=== PATIENT | female | born 1990 | race Two or more races ===

== ENCOUNTER 2020-10-04 13:39 | Outpatient (REF) | payer OTHER, SELFPAY ==
[2020-10-06 13:12] LABS: BV Int Neg Control Negative (Negative); BV Int Pos Control Positive (Positive)
[2020-10-09 02:58] LABS: HPV mRNA E6/E7 rflx Not Detected (Not Detected)
[2020-10-11 14:20] LABS: CT PCR NOT DETECTED (Not Detect.); NG PCR NOT DETECTED (Not Detect.)
== END 2020-10-04 13:40 | disposition home or self-care (01) ==
LOC: HO.LAB 13:39
PROVIDERS: PCP Internal Medicine; Referring Provider Internal Medicine; Visit Provider Advanced Practice Midwife
DX: Z01.419 Encounter for gynecological examination (general) (routine) without abnormal findings (principal); N92.1 Excessive and frequent menstruation with irregular cycle; Z97.5 Presence of (intrauterine) contraceptive device; Z20.2 Contact with and (suspected) exposure to infections with a predominantly sexual mode of transmission
CPT/HCPCS: 87480; 87491; 87510; 87591; 87624; 87625; 87660; 88142

== ENCOUNTER 2020-10-04 15:50 | Outpatient (REF) | payer OTHER, SELFPAY | END 2020-10-04 15:51 | disposition home or self-care (01) | LOC: HO.LAB 15:50 | PROVIDERS: Visit Provider Internal Medicine | DX: Z20.828 Contact with and (suspected) exposure to other viral communicable diseases (principal) | CPT/HCPCS: C9803; U0003 ==

== ENCOUNTER 2020-12-05 15:30 | Outpatient (REF) | payer OTHER, SELFPAY | END 2020-12-05 15:31 | disposition home or self-care (01) | LOC: HO.LAB 15:30 | PROVIDERS: Visit Provider Internal Medicine | DX: Z20.822 Contact with and (suspected) exposure to COVID-19 (principal) | CPT/HCPCS: 36415; C9803; U0003; U0005 ==

== ENCOUNTER 2020-12-18 12:08 | Outpatient (REF) | payer OTHER, SELFPAY | END 2020-12-18 12:09 | disposition home or self-care (01) | LOC: HO.LAB 12:08 | PROVIDERS: PCP Internal Medicine; Visit Provider Internal Medicine | DX: Z20.822 Contact with and (suspected) exposure to COVID-19 (principal) | CPT/HCPCS: 36415; C9803; U0003; U0005 ==

== ENCOUNTER 2020-12-23 13:45 | Outpatient (REF) | payer OTHER, SELFPAY | END 2020-12-23 13:46 | disposition home or self-care (01) | LOC: HO.LAB 13:45 | PROVIDERS: PCP Internal Medicine; Visit Provider Internal Medicine | DX: Z20.822 Contact with and (suspected) exposure to COVID-19 (principal) | CPT/HCPCS: 36415; C9803; U0003; U0005 ==

== ENCOUNTER 2021-02-20 14:26 | Outpatient (REF) | payer OTHER, SELFPAY ==
[2021-02-20 14:48] LABS: COVID-19 Test Negative (Negative); IDNOW Serial# 55D5AD1C
== END 2021-02-20 14:27 | disposition home or self-care (01) ==
LOC: HO.LAB 14:26
PROVIDERS: Visit Provider Internal Medicine
DX: Z20.822 Contact with and (suspected) exposure to COVID-19 (principal)
CPT/HCPCS: 36415; 87635; C9803

== ENCOUNTER → 2021-03-26 09:56 | Outpatient (BNVA) | payer OTHER, SELFPAY | PROVIDERS: PCP Internal Medicine; Visit Provider Advanced Practice Midwife ==

== ENCOUNTER 2021-06-10 13:14 | Outpatient (REF) | payer OTHER, SELFPAY | END 2021-06-10 13:15 | disposition home or self-care (01) | LOC: HO.LAB 13:14 | PROVIDERS: PCP Internal Medicine; Visit Provider Internal Medicine | DX: Z20.822 Contact with and (suspected) exposure to COVID-19 (principal) | CPT/HCPCS: C9803; U0003; U0005 ==

== ENCOUNTER → 2021-07-29 15:12 | Outpatient (BNVA) | payer OTHER, SELFPAY | PROVIDERS: PCP Internal Medicine; Visit Provider Advanced Practice Midwife ==

== ENCOUNTER → 2021-09-02 13:10 | Outpatient (BNVA) | payer OTHER, SELFPAY | PROVIDERS: PCP Internal Medicine; Visit Provider Advanced Practice Midwife | DX: Z30.46 Encounter for surveillance of implantable subdermal contraceptive (principal) | CPT/HCPCS: 11982 ==

== ENCOUNTER → 2021-10-09 10:09 | Outpatient (BNVA) | payer OTHER, SELFPAY | PROVIDERS: PCP Internal Medicine; Visit Provider Advanced Practice Midwife | DX: Z01.419 Encounter for gynecological examination (general) (routine) without abnormal findings (principal); N97.0 Female infertility associated with anovulation; L68.0 Hirsutism; Z87.42 Personal history of other diseases of the female genital tract | CPT/HCPCS: 81025 ==

== ENCOUNTER 2022-03-03 14:03 | Outpatient (REF) | payer OTHER, SELFPAY ==
[2022-03-04 13:18] LABS: Influenza A PCR POSITIVE (Negative); Influenza B PCR NEGATIVE (Negative); Resp Syncy Virus RNA Qual PCR NEGATIVE (Negative); SARS COV2 PCR INHOUSE NEGATIVE (Negative)
== END 2022-03-03 14:04 | disposition home or self-care (01) ==
LOC: HO.LAB 14:03
PROVIDERS: Visit Provider Hospitalist
DX: J06.9 Acute upper respiratory infection, unspecified (principal); Z20.822 Contact with and (suspected) exposure to COVID-19
CPT/HCPCS: 0241U

== ENCOUNTER 2022-03-03 14:41 | Outpatient (REF) | payer OTHER, SELFPAY ==
[2022-03-03 15:14] LABS: COVID-19 Test Negative (Negative)
== END 2022-03-03 14:42 | disposition home or self-care (01) ==
LOC: HO.LAB 14:41
PROVIDERS: Visit Provider Internal Medicine
DX: Z20.822 Contact with and (suspected) exposure to COVID-19 (principal)
CPT/HCPCS: 87635; C9803

== ENCOUNTER → 2022-05-12 12:48 | Outpatient (BNVA) | payer OTHER, SELFPAY | PROVIDERS: PCP Internal Medicine; Visit Provider Advanced Practice Midwife | DX: Z32.01 Encounter for pregnancy test, result positive (principal); Z87.42 Personal history of other diseases of the female genital tract | CPT/HCPCS: 81025 ==

== ENCOUNTER 2022-05-15 16:55 | Outpatient (REF) | payer OTHER, SELFPAY ==
[2022-05-15 17:45] LABS: HCG Quantitative 2259 mIU/mL
== END 2022-05-15 16:56 | disposition home or self-care (01) ==
LOC: HO.LAB 16:55
PROVIDERS: PCP Internal Medicine; Visit Provider Advanced Practice Midwife
DX: Z32.01 Encounter for pregnancy test, result positive (principal); Z87.42 Personal history of other diseases of the female genital tract
CPT/HCPCS: 36415; 84702

== ENCOUNTER 2022-05-18 06:35 | Outpatient (REF) | payer OTHER, SELFPAY ==
[2022-05-18 07:56] LABS: HCG Quantitative 3658 mIU/mL
== END 2022-05-18 06:36 | disposition home or self-care (01) ==
LOC: HO.LAB 06:35
PROVIDERS: PCP Internal Medicine; Visit Provider Advanced Practice Midwife
DX: Z32.01 Encounter for pregnancy test, result positive (principal); Z87.42 Personal history of other diseases of the female genital tract
CPT/HCPCS: 36415; 84702

== ENCOUNTER 2022-05-19 13:22 | Outpatient (REF) | payer OTHER, SELFPAY ==
--- NOTE | ~2022-05-19 | US_ITS ---
EXAMINATION: US OBSTETRICAL ULTRASOUND CLINICAL INFORMATION: COMPARISON: None. LMP: 04/04/2022. Gestational age by maternal dates is 6 weeks 3 days. Estimated date of delivery by maternal dates is 01/09/2023. TECHNIQUE: Both transabdominal and endovaginal scanning was performed. FINDINGS: A small gestational sac is present within the endometrial canal with a yolk sac seen. No pole is seen. No heartbeat is detected. Based upon sac size, gestational age would be 5 weeks 2 days. MATERNAL ADNEXA: The right maternal ovary measures 2.3 x 1.2 x 1.6 cm. The left maternal ovary measures 4.7 x 2.7 x 3.2 cm which includes a 2.2 x 1.9 x 2.0 cm corpus luteum cyst. There is no significant maternal adnexal mass. No maternal pelvic ascites. US/US OB <= 14 weeks fetus IMPRESSION: Gestational sac without pole as described above. Based upon sac size, gestational age would be 5 weeks 2 days. Recommend correlation with hCG and repeat ultrasound exam in one week's time.
== END 2022-05-19 13:23 | disposition home or self-care (01) ==
LOC: HO.US 13:22
PROVIDERS: PCP Internal Medicine; Visit Provider Advanced Practice Midwife
DX: Z34.91 Encounter for supervision of normal pregnancy, unspecified, first trimester (principal)
CPT/HCPCS: 76801

== ENCOUNTER 2022-05-22 08:52 | Outpatient (REF) | payer OTHER, SELFPAY ==
--- NOTE | ~2022-05-22 | US_ITS ---
EXAMINATION: OBSTETRICAL ULTRASOUND, FIRST TRIMESTER HISTORY: 31-year-old for follow-up viability LMP: 04/04/2022 COMPARISON: 05/19/2022 TECHNIQUE: Real time transabdominal imaging with color and M-mode Doppler. FINDINGS: An empty intrauterine gestational sac measuring 8.2 mm corresponding to 5 weeks and 3 days is noted. No yolk sac or embryonic pole seen. Both maternal ovaries are seen and appear normal. No free fluid in the cul-de-sac. GESTATIONAL AGE: 1. GA from LMP: 6.6 wks 2. GA from AUA: 5.3 wks ESTIMATED DATE OF DELIVERY: 1. PATRICIA from LMP: 01/09/2023 2. PATRICIA from AUA: 01/19/2023 US/US OB <= 14 weeks fetus IMPRESSION: 1. Today's finding is consistent with the missed AB Discussion: I reviewed today's findings and discussed the 3 options for management of first trimester missed AB. Thank you very much for this referral. This note was generated with a voice recognition program. Please excuse any errors which may have been overlooked during my review of this note. Sometimes these errors may affect the content or meaning of a given sentence.
== END 2022-05-22 08:53 | disposition home or self-care (01) ==
LOC: HO.US 08:52
PROVIDERS: Visit Provider Advanced Practice Midwife
DX: Z34.90 Encounter for supervision of normal pregnancy, unspecified, unspecified trimester (principal); Z87.42 Personal history of other diseases of the female genital tract
CPT/HCPCS: 76801

== ENCOUNTER 2022-05-29 10:22 | Outpatient (REF) | payer OTHER, SELFPAY ==
--- NOTE | ~2022-05-29 | US_ITS ---
EXAMINATION: US OBSTETRICAL ULTRASOUND CLINICAL INFORMATION: Encounter for supervision of . Follow-up missed . COMPARISON: 05/22/2022. LMP: 04/04/2022. Gestational age by maternal dates is 7 weeks 6 days. Estimated date of delivery by maternal dates is 01/09/2023. TECHNIQUE: Transabdominal and endovaginal sonographic evaluation of the pelvis. FINDINGS: There is a single intrauterine gestational sac with visible yolk sac, embryo/fetus, and cardiac activity. There is no significant subchorionic hemorrhage or hematoma. The yolk sac appears prominent. HR: 119 beats per minute. CRL (crown rump length): 0.35 cm (6 weeks 0 days +/- 4 days). PATRICIA (estimated date of delivery): 01/22/2023 +/- 4 days. MATERNAL ADNEXA: The right maternal ovary measures 3.1 x 1.5 x 3 cm. No adnexal mass. The left maternal ovary measures 4.7 x 3.1 x 4 cm. Dominant follicle measuring 2.4 cm. There is no significant maternal adnexal mass. No maternal pelvic ascites. US/US OB <= 14 weeks fetus IMPRESSION: 1. Single intrauterine gestation with ultrasound gestational age of 6 weeks 0 days +/- 4 days. This is a change from prior, at which time no pole was seen. This may have been secondary to the early stage of . Of note, the yolk sac does appear abnormally prominent. 2. Estimated date of delivery is 01/22/2023 +/- 4 days. 3. No maternal adnexal mass or pelvic ascites.
--- NOTE | ~2022-05-29 | US_ITS ---
EXAMINATION: US OBSTETRICAL ULTRASOUND CLINICAL INFORMATION: Encounter for supervision of . Follow-up missed . COMPARISON: 05/22/2022. LMP: 04/04/2022. Gestational age by maternal dates is 7 weeks 6 days. Estimated date of delivery by maternal dates is 01/09/2023. TECHNIQUE: Transabdominal and endovaginal sonographic evaluation of the pelvis. FINDINGS: There is a single intrauterine gestational sac with visible yolk sac, embryo/fetus, and cardiac activity. There is no significant subchorionic hemorrhage or hematoma. The yolk sac appears prominent. HR: 119 beats per minute. CRL (crown rump length): 0.35 cm (6 weeks 0 days +/- 4 days). PATRICIA (estimated date of delivery): 01/22/2023 +/- 4 days. MATERNAL ADNEXA: The right maternal ovary measures 3.1 x 1.5 x 3 cm. No adnexal mass. The left maternal ovary measures 4.7 x 3.1 x 4 cm. Dominant follicle measuring 2.4 cm. There is no significant maternal adnexal mass. No maternal pelvic ascites. US/US OB transvaginal IMPRESSION: 1. Single intrauterine gestation with ultrasound gestational age of 6 weeks 0 days +/- 4 days. This is a change from prior, at which time no pole was seen. This may have been secondary to the early stage of . Of note, the yolk sac does appear abnormally prominent. 2. Estimated date of delivery is 01/22/2023 +/- 4 days. 3. No maternal adnexal mass or pelvic ascites.
== END 2022-05-29 10:23 | disposition home or self-care (01) ==
LOC: HO.US 10:22
PROVIDERS: Visit Provider Advanced Practice Midwife
DX: Z34.91 Encounter for supervision of normal pregnancy, unspecified, first trimester (principal); Z3A.01 Less than 8 weeks gestation of pregnancy
CPT/HCPCS: 76801; 76817

== ENCOUNTER 2022-06-05 09:12 | Outpatient (REF) | payer OTHER, SELFPAY ==
--- NOTE | ~2022-06-05 | US_ITS ---
EXAMINATION: OB ULTRASOUND CLINICAL INFORMATION: Follow-up IUP COMPARISON: Previous exam May 2022 TECHNIQUE: Transabdominal first trimester OB ultrasound FINDINGS: There is an intrauterine gestational sac. Brumley-rump length measures 1.43 cm suggesting gestational age 7 weeks 6 days with estimated date of delivery of 01/16/2023. heart rate is 150 bpm. There is a prominent yolk sac. There is hypoechoic material adjacent to the gestational sac suggestive of small subchorionic hemorrhage. This measures 2.3 x 0.7 x 1 cm. The right maternal ovary is normal and measures 3.3 x 1.7 x 1.7 cm. The left maternal ovary measures 3.1 x 2.9 x 3.8 cm. There is a 2.2 x 0.7 x 1 cm left ovarian cyst. There is no fluid in the pelvis. US/US OB transvaginal IMPRESSION: Single viable intrauterine . From today's measurements gestational age is estimated at 7 weeks 6 days with estimated date of delivery of 01/16/2022. Yolk sac still appears prominent. Small subchorionic hemorrhage.
--- NOTE | ~2022-06-05 | US_ITS ---
EXAMINATION: US OBSTETRICAL ULTRASOUND CLINICAL INFORMATION: Follow-up missed . Increasing beta hCG level. COMPARISON: 05/29/2022. TECHNIQUE: Sonographic imaging of the pelvis is performed using a transabdominal transducer. FINDINGS: A single viable intrauterine gestation is observed. The heart rate is 150 bpm. The crown rump length is 1.5 cm, corresponding to estimated gestational age of 7 weeks, 6 days. The estimated date of delivery is 01/16/2023. A small crescentic shaped subchorionic hemorrhage measures approximately 2.3 x 0.7 x 0.7 cm. Again noted is an abnormally large yolk sac that measures up to 1.1 cm diameter, increased from 0.5 cm size observed on 05/22/2022. The maternal ovaries are normal. The right ovary is 3.3 x 1.7 x 1.7 cm. The left ovary is 3.1 x 2.9 x 3.8 cm. The dominant follicle within the left ovary is 2.3 cm. No pelvic free fluid. US/US OB <= 14 weeks fetus IMPRESSION: * Single viable intrauterine gestation with estimated gestational age of 7 weeks, 6 days. * A large yolk sac of 1.1 cm diameter is observed, a finding that might indicate risk for a poor obstetric outcome. * Interval development of a small subchorionic hemorrhage.
== END 2022-06-05 09:13 | disposition home or self-care (01) ==
LOC: HO.US 09:12
PROVIDERS: Visit Provider Advanced Practice Midwife
DX: O20.8 Other hemorrhage in early pregnancy (principal); Z3A.01 Less than 8 weeks gestation of pregnancy
CPT/HCPCS: 76801; 76817

== ENCOUNTER 2022-06-24 08:07 | Outpatient (REF) | payer OTHER, SELFPAY ==
[2022-06-24 08:49] LABS: COVID-19 Test Negative (Negative); IDNOW Serial# 16C4AD1C
== END 2022-06-24 08:08 | disposition home or self-care (01) ==
LOC: HO.LAB 08:07
PROVIDERS: Visit Provider Internal Medicine
DX: Z20.822 Contact with and (suspected) exposure to COVID-19 (principal)
CPT/HCPCS: 87635; C9803

== ENCOUNTER 2022-06-26 10:49 | Outpatient (REF) | payer OTHER, SELFPAY ==
[2022-06-26 11:32] LABS: COVID-19 Test Negative (Negative); IDNOW Serial# 9DD0AD1C
== END 2022-06-26 10:50 | disposition home or self-care (01) ==
LOC: HO.LAB 10:49
PROVIDERS: Visit Provider Internal Medicine
DX: Z20.822 Contact with and (suspected) exposure to COVID-19 (principal)
CPT/HCPCS: 87635; C9803

== ENCOUNTER 2022-11-24 09:30 | Outpatient (REF) | payer OTHER, SELFPAY ==
[2022-11-24 10:20] LABS: Influenza A PCR NEGATIVE (Negative); Influenza B PCR NEGATIVE (Negative); Resp Syncy Virus RNA Qual PCR NEGATIVE (Negative); SARS COV2 PCR INHOUSE NEGATIVE (Negative)
== END 2022-11-24 09:31 | disposition home or self-care (01) ==
LOC: HO.LAB 09:30
PROVIDERS: Visit Provider Internal Medicine
DX: Z20.822 Contact with and (suspected) exposure to COVID-19 (principal); J98.8 Other specified respiratory disorders
CPT/HCPCS: 0241U

== ENCOUNTER 2023-03-24 13:34 | Outpatient (REF) | payer OTHER, SELFPAY ==
[2023-03-24 13:53] LABS: MANUAL DIFF FLAG NO
[2023-03-24 14:38] LABS: Basophils Absolute Auto 0.1 X10*3/uL (0.0-0.2); Basophils Percent Auto 0.8 % (0-2); Eosinophils Absolute Auto 0.2 X10*3/uL (0.0-0.4); Eosinophils Percent Auto 2.2 % (0-4); Hematocrit 41.4 % (37.0-47.0); Hemoglobin 13.7 g/dl (12.0-16.0); Imm Gran Abs Auto 0.03 X10*3/uL (0.00-0.03); Imm Gran Pct Auto 0.3 % (0.0-0.4); Lymphocytes Absolute Auto 2.4 X10*3/uL (1.2-4.9); Lymphocytes Percent Auto 27.3 % (20-40); Mean Corpuscular HGB Conc 33.1 g/dl (31.0-35.0); Mean Corpuscular Hemoglobin 29.9 pg (27.0-33.0); Mean Corpuscular Volume 90.4 fL (80.0-98.0); Mean Platelet Volume 9.8 fL (9.4-12.3); Monocytes Absolute Auto 0.5 X10*3/uL (0.1-1.2); Monocytes Percent Auto 5.2 % (2-11); Neutrophils Absolute Auto 5.5 x10*3/uL (2.0-8.3); Neutrophils Percent Auto 64.2 % (45-73); Platelet Count 350 X10*3/uL (160-400); Red Blood Count 4.58 X10*6/uL (4.20-5.50); Red Cell Distribution Width 13.6 % (11.0-16.0); White Blood Count 8.6 X10*3/uL (4.8-10.8)
[2023-03-24 15:36] LABS: Alanine Aminotransferase 19 U/L (0-31); Albumin Level 4.6 g/dL (3.5-5.0); Alkaline Phosphatase 84 U/L (39-117); Anion Gap 16 (12-20); Aspartate Amino Transferase 18 U/L (5-31); Bilirubin Total 0.7 mg/dL (0.0-1.0); Blood Urea Nitrogen 13 mg/dL (9-16); Calcium 9.7 mg/dL (8.4-10.2); Carbon Dioxide 21 mmol/L (22-29); Chloride 108 mmol/L (96-108); Cholesterol 255 mg/dL; Estimated Glomerular Filt Rate > 60; Glucose Fasting 75 mg/dL (60-99); HDL Cholesterol 47 mg/dL; LDL Cholesterol Calculated 175 mg/dl; Potassium 4.3 mmol/L (3.3-5.1); Sodium 141 mmol/L (135-145); Total Protein 7.8 g/dL (6.5-8.0); Triglycerides 167 mg/dL
[2023-03-24 15:41] LABS: Appearance Urine Clear; Color Urine Yellow; Glucose Urine UA Negative (Negative); Leukocyte Esterase Urine Negative (Negative); Nitrite Urine Negative (Negative); PH 5.5 (5.0-9.0); Specific Gravity - Urine 1.015 (1.005-1.025); Urine Blood Negative (Negative); Urine Ketones Negative (Negative); Urine Protein Negative (Neg-Trace)
[2023-03-24 15:42] LABS: TSH reflex Free T4 0.77 uIU/mL (0.32-4.0); Vitamin D 25-OH Total 16.6 ng/mL (>30)
== END 2023-03-24 13:35 | disposition home or self-care (01) ==
LOC: HO.LAB 13:34
PROVIDERS: PCP Internal Medicine; Visit Provider Internal Medicine
DX: Z00.00 Encounter for general adult medical examination without abnormal findings (principal); O14.95 Unspecified pre-eclampsia, complicating the puerperium; E55.9 Vitamin D deficiency, unspecified; R30.0 Dysuria; E78.00 Pure hypercholesterolemia, unspecified
CPT/HCPCS: 36415; 80053; 80061; 81003; 82306; 84443; 85025

== ENCOUNTER 2023-07-09 15:57 | Outpatient (AMB) | payer MEDICAID, SELFPAY ==
--- NOTE | 2023-07-09 16:00 | MHC.PC.OV ---
Vital Signs 07/09/23 16:01 Height 5 ft 4 in Weight 211 lb 8 oz BMI 36.3 BP 146/92 H Blood Pressure Location Lt brachial Position Sitting Pulse 93 Pulse Source Pulse Oximeter Pulse Oximetry (%) 98 Oxygen Delivery Method Room Air Intake Visit Reasons: preeclampsia, elevated BP [employer] Truck [employer] Required: No Accompanied by: Self / Same As Patient Allergies No Known Allergies [No Known Allergies*] Allergy (Verified 07/11/23 21:35) Medication List - Last Reconciled 07/11/23 by Augustin Rasmussen MD cholecalciferol (vitamin D3) 50 mcg PO DAILY 90 days etonogestrel (Nexplanon) subdermal lisinopril 2.5 mg PO DAILY 30 days pseudoephedrine-acetaminophen 30-500 mg tabs PO Tobacco use date assessed: 07/09/23 Dental Screening Dental Screen Date: 07/09/23 Did you have a dental visit in the last 12 months?: Yes Did you have a dental problem in the last 6 months where you did not have access to dental care?: No Was dental information given to patient?: Patient has dentist HPI preeclampsia, elevated BP HPI Details Patient comes in today for her follow-up visit States that she feels okay Denies any headaches or dizziness Denies any chest pains, no shortness of breath No nausea / vomiting, no abdominal pain No change in bowel habits noted Would like to know how she did on her labs done a few months ago after her last visit [facility] Medical History (Updated 07/11/23 @ 21:56 by Augustin Rasmussen MD) Vitamin D deficiency Mixed hyperlipidemia Benign essential hypertension Preeclampsia in period Anovulatory cycle History of irregular menstrual cycles Eczema Obesity (BMI 30-39.9) Left ovarian cyst Surgical History History of surgery H/O right knee surgery History of section Family History Father Gout High cholesterol S/P CABG (coronary artery bypass graft) Mother Hypertension Asthma Uterine cancer Heart problem Maternal Grandmother High cholesterol Hypertension Diabetes Maternal Grandfather Glaucoma Maternal Aunt Breast cancer Paternal Aunt Ovarian cancer Social History Housing: Apartment Alcohol intake: current Alcohol intake frequency: holidays/special occasions only Patient Tobacco Use Status: Former Tobacco user e-Cigarette/Vaping Use: Currently Using service: No Current occupational status: employed Current occupational exposures/hazards: No Gender identity: Female Cognitive needs: No Hearing needs: No Vision needs: No Female Reproductive History Menstrual Age of Menarche: 14 Questionnaire PHQ-9 Over the last 2 weeks, how often have you been bothered by any of the following problems? 1. Little interest or pleasure in doing things: not at all 2. Feeling down, depressed, or hopeless: not at all 3. Trouble falling or staying asleep, or sleeping too much: not at all 4. Feeling tired or having little energy: not at all 5. Poor appetite or overeating: not at all 6. Feeling bad about yourself - or that you are a failure or have let yourself or your family down: not at all 7. Trouble concentrating on things, such as reading the newspaper or watching television: not at all 8. Moving or speaking so slowly that other people could have noticed. Or the opposite - being so fidgety or restless that you have been moving around a lot more than usual: not at all 9. Thoughts that you would be better off or of hurting yourself in some way: not at all Total score: 0 Depression Screening Interpretation: Negative 95717 - PHQ-9 Billing: Yes Source: Developed by Drs. Jv Mejia, Candis Jacob, David Galvez and colleagues, with an educational akira from [employer]. Thrive Questionnaire Date Thrive assessed: 07/09/23 I am a: Patient What is your living situation today?: I have a steady place to live Within the past 12 months, did the food you bought not last and you didn't have the money to get more?: Never true Within the past 12 months, did you worry whether your food would run out before you got money to buy more?: Never true Do you have trouble paying for medicines?: No Do you have trouble getting transportation to medical appointments?: No Do you have trouble paying your heating and electricity bill?: No Do you have trouble taking care of your child, family member or friend?: No Do you have trouble with day-to-day activities such as bathing, preparing meals, shopping, managing finances, etc.?: No Are you currently unemployed and looking for a job?: No Are you interested in more education?: No Please select the resources that you would like help with: None Currently or been in a relationship where the following occur: no concerns reported AUDIT C Alcohol Use Questionnaire (AUDIT-C) 1. How often do you have a drink containing alcohol?: Monthly or less 2. How many drinks containing alcohol do you have on a typical day when you are drinking?: 1 or 2 Total Score: 1 Score Reviewed/Action Taken: Yes TELMA-7 AMB Questionnaire TELMA-7 Date TELMA - 7 assessed: 07/09/23 Feeling nervous, anxious, or on edge: 0 = Not at all Not being able to stop or control worryin = Not at all Worrying too much about different things: 0 = Not at all Trouble relaxin = Not at all Being so restless that it is hard to sit still: 0 = Not at all Becoming easily annoyed or irritable: 0 = Not at all Feeling afraid as if something awful might happen: 0 = Not at all Total TELMA-7 score (0-4 normal; 5-9 mild; 10-14 moderate; 15-21 severe): 0 Source: Developed by Drs. Jv Mejia, Candis Jacob, David Galvez and colleagues, with an educational akira from [employer]. Review of Systems Const Denies chills, Denies fatigue, Denies fever(s) and Denies headache(s) ENT Denies dysphagia, Denies dizziness, Denies otalgia, Denies headache(s), Denies neck pain, Denies odynophagia and Denies sore throat Card Denies chest pain, Denies palpitations and Denies dyspnea Resp Denies cough and Denies dyspnea GI Denies abdominal pain, Denies constipation, Denies dysphagia, Denies heartburn, Denies diarrhea, Denies nausea, Denies odynophagia and Denies vomiting Denies difficulty voiding, Denies nocturia and Denies dysuria Musc Denies neck pain Neuro Denies dizziness and Denies headache(s) Endo Denies fatigue and Denies palpitations Physical exam (Primary Care) Vital Signs: Last Vital Signs Pulse 93 07/09/23 16:01 BP 146/92 H 07/09/23 16:01 Pulse Ox 98 07/09/23 16:01 Oxygen Delivery Method Room Air 07/09/23 16:01 BMI result Body Mass Index 36.3 Tobacco/Smoking Status: Tobacco use Status Tobacco use date assessed 07/09/23 07/09/23 16:08 Patient Tobacco Use Status Former Tobacco user 07/09/23 16:08 e-Cigarette/Vaping Use Currently Using 07/09/23 16:08 PHQ-9: PHQ-9 Score PHQ-9: Total score 0 07/11/23 21:43 Depression Screening Interpretation: Negative Thrive Assessment: Date of Thrive Assessment Date Thrive assessed 07/09/23 07/09/23 16:08 Currently or been in a relationship where the following occur: no concerns reported Const General: no acute distress and alert HENMT Ears: TM's normal bilaterally and EAC's normal Throat: Yes posterior oropharynx normal and Yes tonsils normal (no TP congestion) Neck Neck: Yes no lymphadenopathy and Yes supple Resp Auscultation: clear to auscultation bilaterally, no rales and no wheezes Cardio Rate: regular rate Rhythm: regular rhythm Heart sounds: no murmurs GI Palpation (GI): Soft to palpation, nontender and No hepatosplenomegaly present Skin General skin exam: no rashes or lesions noted Extrem General: Yes no clubbing, cyanosis or edema Assessment and Plan Assessment & Plan (1) Benign essential hypertension: Code(s): I10 - Essential (primary) hypertension Plan: Reinforced low sodium diet - goal is systolic BP of at least 120 mm or less Repeat BP in the office today still yields a high BP of 142/92 mm Will go ahead and start patient on Lisinopril 2.5 mg QD Patient is instructed to continue monitoring her blood pressure regularly (2) Mixed hyperlipidemia: Code(s): E78.2 - Mixed hyperlipidemia Plan: Results of her labs done a few months ago reviewed and discussed with patient - advised that her cholesterol numbers were elevated across the board Reminded that her cholesterol numbers were normal when last checked a few years ago so her currently elevated cholesterol levels are most likely due to poor dietary compliance Reinforced low cholesterol diet - low cholesterol diet info provided from the office Will recheck her labs and fasting lipids in 4 months for follow up (3) Vitamin D deficiency: Code(s): E55.9 - Vitamin D deficiency, unspecified Plan: Advised that her Vitamin D level was very low on her recent labs Will start her on Vitamin D3 2000 units QD (4) Obesity (BMI 30-39.9): Code(s): E66.9 - Obesity, unspecified Plan: Reinforced diet/exercise as tolerated/lose weight Plan Follow up in 4 months Orders: Orders Lipid Panel 4 Months E78.00 - Pure hypercholesterolemia, unspecified UA CC w/rflx Micro + Cult 4 Months R30.0 - Dysuria Complete Blood Count Auto Diff 4 Months I10 - Essential (primary) hypertension Comprehensive [place]. Panel Fast 4 Months E78.00 - Pure hypercholesterolemia, unspecified TSH reflex Free T4 4 Months E78.00 - Pure hypercholesterolemia, unspecified Vitamin D 25-OH Total 4 Months E55.9 - Vitamin D deficiency, unspecified Medications: New cholecalciferol (vitamin D3) 50 mcg PO DAILY 90 days 90 caps 3RF E55.9 - Vitamin D deficiency, unspecified lisinopril 2.5 mg PO DAILY 30 days 30 tabs 3RF Coding Level of Care Code Est Pt Level 4 (39654) Diagnoses Benign essential hypertension I10 Mixed hyperlipidemia E78.2 Vitamin D deficiency E55.9 Obesity (BMI 30-39.9) E66.9
[2023-07-09 16:01] VITALS: BP 146/92; PULSE 93; O2SAT 98; BMI 36.3
== END 2023-07-09 16:55 | disposition home or self-care (01) ==
PROVIDERS: PCP Internal Medicine; Visit Provider Internal Medicine
DX: I10 Essential (primary) hypertension (principal); E55.9 Vitamin D deficiency, unspecified; E66.9 Obesity, unspecified; Z68.36 Body mass index [BMI] 36.0-36.9, adult; E78.2 Mixed hyperlipidemia
CPT/HCPCS: 99214

== ENCOUNTER 2024-11-30 10:07 | Outpatient (REF) | payer OTHER, SELFPAY ==
[2024-11-30 11:36] LABS: MANUAL DIFF FLAG NO
[2024-11-30 11:52] LABS: Basophils Absolute Auto 0.1 X10*3/uL (0.0-0.2); Eosinophils Absolute Auto 0.2 X10*3/uL (0.0-0.4); Eosinophils Percent Auto 2.1 % (0-4); Hematocrit 42.2 % (37.0-47.0); Hemoglobin 14.1 g/dl (12.0-16.0); Imm Gran Abs Auto 0.04 X10*3/uL (0.00-0.03); Imm Gran Pct Auto 0.4 % (0.0-0.4); Lymphocytes Absolute Auto 2.3 X10*3/uL (1.2-4.9); Lymphocytes Percent Auto 24.7 % (20-40); Mean Corpuscular HGB Conc 33.4 g/dl (31.0-35.0); Mean Corpuscular Hemoglobin 31.8 pg (27.0-33.0); Mean Corpuscular Volume 95.3 fL (80.0-98.0); Mean Platelet Volume 9.5 fL (9.4-12.3); Monocytes Absolute Auto 0.5 X10*3/uL (0.1-1.2); Monocytes Percent Auto 5.1 % (2-11); Neutrophils Absolute Auto 6.3 x10*3/uL (2.0-8.3); Neutrophils Percent Auto 66.7 % (45-73); Platelet Count 357 X10*3/uL (160-400); Red Blood Count 4.43 X10*6/uL (4.20-5.50); Red Cell Distribution Width 12.1 % (11.0-16.0); White Blood Count 9.4 X10*3/uL (4.8-10.8)
[2024-11-30 12:04] LABS: Appearance Urine Clear; Color Urine Yellow; Glucose Urine UA Negative (Negative); Leukocyte Esterase Urine Negative (Negative); Nitrite Urine Negative (Negative); PH 5.5 (5.0-9.0); UMIC TRIGGER UACC YES; Urine Blood Small (1+) (Negative); Urine Ketones Negative (Negative); Urine Protein Negative (Neg-Trace)
[2024-11-30 12:22] LABS: Bacteria Urine None Seen (None Seen); Hyaline Casts Urine 0-2 /LPF (0-2); RBC Urine 0-2 /HPF (0-2); Squamous Epithelial Cell Urine 0-2 /HPF (0-2); WBC Urine 0-5 /HPF (0-5)
[2024-11-30 12:38] LABS: Albumin Level 4.6 g/dL (3.5-5.0); Alkaline Phosphatase 62 U/L (39-117); Anion Gap 10 (12-20); Aspartate Amino Transferase 36 U/L (5-31); Bilirubin Total 0.6 mg/dL (0.0-1.0); Blood Urea Nitrogen 10 mg/dL (9-16); Calcium 9.4 mg/dL (8.4-10.2); Carbon Dioxide 23 mmol/L (22-29); Chloride 110 mmol/L (96-108); Cholesterol 225 mg/dL (<200); Estimated Glomerular Filt Rate > 60; Glucose Fasting 79 mg/dL (60-99); HDL Cholesterol 51 mg/dL (>40); LDL Cholesterol Calculated 154 mg/dL (<100); Potassium 4.3 mmol/L (3.3-5.1); Sodium 139 mmol/L (135-145); Total Protein 8.7 g/dL (6.5-8.0); Triglycerides 100 mg/dL (<150)
[2024-11-30 12:56] LABS: Alanine Aminotransferase 30 U/L (0-31); TSH reflex Free T4 0.58 uIU/mL (0.32-4.0); Vitamin D 25-OH Total 12.2 ng/mL (>30)
== END 2024-11-30 10:08 | disposition home or self-care (01) ==
LOC: HO.LAB 10:07
PROVIDERS: PCP Internal Medicine; Visit Provider Internal Medicine
DX: Z00.00 Encounter for general adult medical examination without abnormal findings (principal); D64.9 Anemia, unspecified; E78.00 Pure hypercholesterolemia, unspecified; E55.9 Vitamin D deficiency, unspecified
CPT/HCPCS: 36415; 80053; 80061; 81001; 81003; 82306; 84443; 85025; 96127; 99395

== ENCOUNTER 2025-02-08 09:54 | Outpatient (REF) | payer OTHER, SELFPAY ==
[2025-02-09 13:52] LABS: Bacterial Vaginosis PCR NEGATIVE (Negative); Candida Group PCR DETECTED (Not Detect); Candida glab krusei PCR NOT DETECTED (Not Detect); Trichomonas vaginalis PCR NOT DETECTED (Not Detect)
[2025-02-09 14:18] LABS: CT PCR NOT DETECTED (Not Detect.); NG PCR NOT DETECTED (Not Detect.)
[2025-02-15 10:12] LABS: HPV Genotype 16 Negative (Negative); HPV Genotype 18 Negative (Negative); HPV High Risk Negative (Negative)
== END 2025-02-08 09:55 | disposition home or self-care (01) ==
LOC: HO.LAB 09:54
PROVIDERS: PCP Internal Medicine; Visit Provider Advanced Practice Midwife
DX: Z01.419 Encounter for gynecological examination (general) (routine) without abnormal findings (principal); N89.8 Other specified noninflammatory disorders of vagina; Z20.2 Contact with and (suspected) exposure to infections with a predominantly sexual mode of transmission
CPT/HCPCS: 81515; 87491; 87591; 87626; 88175; 99395; 99459

== ENCOUNTER 2025-02-08 09:54 | Outpatient (AMB) | payer OTHER, SELFPAY ==
[2025-02-08 10:00] VITALS: BP 128/76; BMI 35.2
--- NOTE | 2025-02-08 10:00 | MHC.OFFVIS ---
Vital Signs 02/08/25 10:00 Height 5 ft 4 in Weight 205 lb BMI 35.2 BP 128/76 Intake Visit Reasons: New Patient Annual Radiation Control Specialist Required: No Radiation Control Specialist Services: Radiation Control Specialist Present Information Interpreted: clinical only Roller Cleaner: Roller Cleaner Present Allergies No Known Allergies [No Known Allergies*] Allergy (Verified 02/08/25 10:01) Medication List - Last Reconciled 02/08/25 by Melissa Cunningham CNM cholecalciferol (vitamin D3) 50 mcg PO DAILY 90 days etonogestrel (Nexplanon) subdermal Is last menstrual period known: Yes Last menstrual period: 01/06/25 HPI HPI New Patient Annual: Details: Patient is here for high speed warper tender exam. She had a baby 2 years ago she tried for but it absolutely did not work at all to dilate and they tried everything so she had a repeat . She did have high blood pressure afterwards and was on lisinopril until the fall and her blood pressures been okay since and she has a recheck with her primary to talk about that and other things coming up. She has a history of PCOS she has always had issues with weight she has always had increased facial hair and she goes every week for threading to remove it. She did not have gestational diabetes but she did have a 9 lb 11 oz baby. She also had irregular periods all her life and has always struggled with weight she had all of her screening labs with her primary done this November in fasting blood sugar was within normal limits but she says her cholesterol was elevated. She has a Nexplanon that was inserted in the hospital and she has been getting periods with it she says that they told her she could use it for 4 years she has been thinking about what to do after that she had her honey are getting in April and the kids are participating in the ceremony and they are very clear they do want any other kids so she has been wondering about tubal ligation versus other methods she did have a Mirena once when she was young before she had kids at all but it was uncomfortable and was taken out after 2 or 3 weeks. [facility] Medical History (Updated 02/08/25 @ 10:42 by Melissa Cunningham CNM) Vitamin D deficiency Mixed hyperlipidemia Benign essential hypertension Preeclampsia in period Anovulatory cycle History of irregular menstrual cycles Eczema Obesity (BMI 30-39.9) Left ovarian cyst Surgical History History of surgery H/O right knee surgery History of section Family History Father Gout High cholesterol S/P CABG (coronary artery bypass graft) Mother Hypertension Asthma Uterine cancer Heart problem Maternal Grandmother High cholesterol Hypertension Diabetes Maternal Grandfather Glaucoma Maternal Aunt Breast cancer Paternal Aunt Ovarian cancer Social History Housing: Apartment Alcohol intake: current Alcohol intake frequency: holidays/special occasions only Patient Tobacco Use Status: Former Tobacco user e-Cigarette/Vaping Use: Currently Using service: No Current occupational status: employed Current occupational exposures/hazards: No Gender identity: Female Cognitive needs: No Hearing needs: No Vision needs: No Female Reproductive History Menstrual Age of Menarche: 14 Duration of menses: 3-5 days Date of last menstrual period: 01/06/25 control method: implanted Total pregnancies: 2 Full term: 2 Date of last pap smear: 01/08/22 (negative) History of abnormal pap smear: No Physical Exam Vital Signs: Last Vital Signs BP 128/76 02/08/25 10:00 BMI result Body Mass Index 35.2 Const Other: Increased facial hair noted. Patient has central obesity body type. General: healthy appearing, comfortable, no acute distress, well developed and alert Nutritional Appearance: average body habitus Orientation/consciousness: patient oriented x3 Limitations: no limitations HEENT Head: Yes normocephalic Neck Neck: Yes normal visual inspection Chest Chest palpation & inspection: normal inspection of the chest Breast/axilla inspection: normal inspection of the breasts and normal inspection of the axillae Breast/axilla palpation: normal palpation of the breasts and normal palpation of the axillae Resp Effort & Inspection: normal respiratory effort GI Inspection: Yes normal to inspection, No Abdominal wall edema and No distended Palpation (GI): Soft to palpation and nontender Other: External exam within normal limits vagina pink clear and moist cervix is pink clear nulliparous long close thick mobile nontender uterus is small midposition mobile nontender good tone with Kegel narrow hips and pelvic outlet noted. General: Yes bladder normal to palpation External Female Exam: normal external appearance and normal appearance of the urethra Speculum Exam - Vagina: normal appearance of the vagina, normal palpation and normal vaginal discharge Speculum Exam - Cervix: normal appearance of the cervix, normal palpation and nontender Bimanual exam- vagina & uterus: normal bimanual exam, normal palpation, uterine size normal, bladder normal to palpation, consistency normal, normal palpation, uterine mobility normal, uterine shape normal, No Cervical tenderness present, non-tender and no cervical motion tenderness Bimanual Exam- Adnexa, other: normal adnexae, no masses, normal and No adnexal tenderness Neuro General: patient oriented x3 Assessment & Plan Assessment & Plan (1) History of section: Code(s): Z98.891 - History of uterine scar from previous surgery Category: Surgical (2) Encounter for annual routine gynecological examination: Code(s): Z01.419 - Encounter for gynecological examination (general) (routine) without abnormal findings Category: Medical (3) History of irregular menstrual cycles: Code(s): Z87.42 - Personal history of other diseases of the female genital tract Category: Medical (4) Preeclampsia in period: Code(s): O14.95 - Unspecified pre-eclampsia, complicating the puerperium Category: Medical (5) Benign essential hypertension: Comment: Normotensive today, is currently off the lisinopril. Code(s): I10 - Essential (primary) hypertension Category: Medical (6) Mixed hyperlipidemia: Code(s): E78.2 - Mixed hyperlipidemia Category: Medical (7) Hirsutism: Code(s): L68.0 - Hirsutism Category: Medical (8) control counseling: Code(s): Z30.09 - Encounter for other general counseling and advice on contraception Category: Medical (9) Encounter for surveillance of Nexplanon subdermal contraceptive: Code(s): Z30.46 - Encounter for surveillance of implantable subdermal contraceptive Category: Medical Plan -----Discussed in this visit the following: healthy balanced diet, regular and consistent exercise, getting recommended health screens, doing the best she can for her particular health concerns, kegel exercises, pap smear screening and followup recommendations, mammography screening and SBE, normal changes in cycles in her life stage--- . Discussed issues with PCOS in great detail including that it is a syndrome that is more marked by the elevated body mass with its concurrent elevated hormones which contributes to an ovulatory cycles which contribute to the formation polycystic ovarian cysts and irregular menses and the elevated hormones contribute to the dyslipidemia and to the tendency towards pre diabetes and diabetes and liver issues and it all circles back to being overweight though it also presents a very difficult syndrome and difficulty losing weight. Discussed that it is worth having a conversation about any of the weight loss medications though she may or may not meet criteria to qualify for them. Discussed management of irregular periods and control and the methods that we use which include control pills Nexplanon as well as Mirena IU S discussed that if she is looking for a long-term method of control that might help with her menses a Mirena may be useful to try as when the Nexplanon is expiring in 1-2 years, and we could also consider using misoprostol before insertion to aid in the softening of her nulliparous cervix. She currently is getting menses so if she were getting menses it should also be timed to the on her period. For now she is good with the Nexplanon. She will talk with her doctor about whether not there were any other options for her and she will re double her own efforts with weight loss.. Pap done testing for gonorrhea chlamydia trich bacterial vaginosis and yeast cervix appeared very clear with scant clear discharge a thickened mucus gel in cervical os consistent with Nexplanon use. Coding Level of Care Code New Pt Prev Care [id number]([id number] Diagnoses History of section Z98.891 Encounter for annual routine gynecological examination Z01.419 History of irregular menstrual cycles Z87.42 Preeclampsia in period O14.95 Benign essential hypertension I10 Mixed hyperlipidemia E78.2 Hirsutism L68.0 control counseling Z30.09 Encounter for surveillance of Nexplanon subdermal contraceptive Z30.46
== END 2025-02-08 10:49 | disposition home or self-care (01) ==
LOC: HO.HWSM 09:54
PROVIDERS: PCP Internal Medicine; Visit Provider Advanced Practice Midwife
DX: Z01.419 Encounter for gynecological examination (general) (routine) without abnormal findings (principal)
CPT/HCPCS: 99395; 99459

== ENCOUNTER 2025-02-08 10:46 | Outpatient (REF) | payer OTHER, SELFPAY | END 2025-02-08 10:47 | disposition home or self-care (01) | LOC: HO.LNP 10:46 | PROVIDERS: Visit Provider Advanced Practice Midwife | DX: Z12.4 Encounter for screening for malignant neoplasm of cervix (principal) | CPT/HCPCS: 88175 ==

== ENCOUNTER 2025-10-19 09:07 | Outpatient (AMB) | payer OTHER, SELFPAY ==
--- NOTE | 2025-10-19 09:14 | AM.OFFWIN_ITS ---
Intake Vital Signs 10/19/25 09:15 Height 5 ft 4 in Weight 208 lb BMI 35.7 BP 120/90 H Blood Pressure Location Rt brachial Position Sitting Pulse 78 Pulse Source Pulse Oximeter Pulse Oximetry (%) 98 Oxygen Delivery Method Room Air Intake Visit Reasons: EP left hip pain Intake Note: Patient presents c/o left hip pain x2 weeks - unknown injury. Patient has tried OTC pain relievers/gels/patches with no relief. Patient Tobacco Use Status: Current someday Tobacco user (Vapes) Allergies No Known Allergies (No Known Allergies*) Allergy (Verified 10/19/25 09:17) HPI HPI Comments History of Present Illness Details History of Present Illness - The patient is a 35-year-old female pr esenting with left hip pain. - The pain started two weeks ago without any specific injury. - She describes the pain as a pulling sensation located more in her groin area, which is exacerbated by standing and extending her leg. - She reports that the pain radiates antonio n her leg to behind her knee, particularly when she is lying down and relaxing. She has had sciatica and this does not feel the same as sciatica, no shooting or sharp pains. - The patient has tried a lidocaine patc h, which she feels provided some relief. Ibuprofen didn't help. - Her medical history is significant for chronic back pain, which worsened after spinal anesthesia for two C-sections, and a history of right-sided sciatica. - The patient notes she frequently lifts her [id number] son who weighs over 50 pounds. - She reports a family history of arthri tis. - She states she sometimes feels a grind ing sensation in her hip. - The patient denies any kidney issues a nd confirms she is not . Review of Systems - Musculoskeletal: Reports left hip and groin pain for two weeks, described as a pulling sensation. Reports pain is exacerbated by standing and leg extension. Denies grinding sensation in the hip. Reports a history of chronic back pain and right-sided sciatica. - Neurological: Reports pain radiating d own the left leg to behind the knee. All systems reviewed and are unremarkable except as noted in HPI Physical Exam General: Cooperative, healthy appearing, comfortable, no acute distress and well developed Orientation: Patient oriented x3 Limitations: Limited range of motion in the left hip due to pain Head: Normal to inspection Ears: Hearing grossly normal bilaterally Nose: Normal External nose present Face and sinus: Normal facial exam Eyes: Appearance normal, both eyes and all related structures Neck: Normal visual inspection and Yes full ROM Respiratory: Normal respiratory effort and able to speak in complete sentences. Skin: No rashes or lesions noted Neuro: Patient oriented x3 Extremities: Normal to inspection, left hip with TTP lateral hip, full ROM but pain worsens with extension. [facility] Medical History Vitamin D deficiency Mixed hyperlipidemia Benign essential hypertension Preeclampsia in period Anovulatory cycle History of irregular menstrual cycles Eczema Obesity (BMI 30-39.9) Left ovarian cyst Surgical History History of surgery H/O right knee surgery History of section Family History Father Gout High cholesterol S/P CABG (coronary artery bypass graft) Mother Hypertension Asthma Uterine cancer Heart problem Maternal Grandmother High cholesterol Hypertension Diabetes Maternal Grandfather Glaucoma Maternal Aunt Breast cancer Paternal Aunt Ovarian cancer Social History Housing: Apartment Alcohol intake: current Alcohol intake frequency: holidays/special occasions only Patient Tobacco Use Status: Current someday Tobacco user (Vapes) e-Cigarette/Vaping Use: Currently Using service: No Current occupational status: employed Current occupational exposures/hazards: No Gender identity: Female Cognitive needs: No Hearing needs: No Vision needs: No Female Reproductive History Menstrual Age of Menarche: 14 Physical Exam Vital Signs: Last Vital Signs Pulse 78 10/19/25 09:15 BP 120/90 H 10/19/25 09:15 Pulse Ox 98 10/19/25 09:15 Oxygen Delivery Method Room Air 10/19/25 09:15 BMI result Body Mass Index 35.7 Assessment & Plan Assessment & Plan (1) Hip bursitis, left: Code(s): M70.72 - Other bursitis of hip, left hip Qualifiers: Hip bursitis location: trochanteric bursitis Qualified Code(s): M70.62 - Trochanteric bursitis, left hip Plan: Plan Patient was informed and verbally consented to the use of an ambient scribe for clinic note documentation during this visit. 1. Left Trochanteric Bursitis - The patient's presentation of localized pain over the lateral hip for two weeks, which is tender to palpation, is consistent with trochanteric bursitis. A co-existing muscle spasm is also suspected due to the reported pulling sensation in the groin that is exacerbated by leg extension and radiates down the leg. Sciatica is considered less likely as the pain characteristics differ from her previous experience with right-sided sciatica. - Meloxicam, a prescription NSAID, was prescribed to be taken once daily as needed, particularly over the weekend, to manage inflammation. She was advised against taking it with other NSAIDs like ibuprofen. - Cyclobenzaprine 5 mg was prescribed for muscle spasms, to be taken every 8 hours as needed. She was instructed that she could take a 10 mg dose in the evening if needed but was counseled on potential drowsiness and to avoid driving or alcohol with the higher dose. - The patient was advised to apply ice to the affected area to help reduce inflammation. - Activity modification was recommended, specifically to avoid lifting her heavy toddler, to prevent further irritation. - An order for a left hip X-ray will be placed, which she can have done in about a week if her symptoms do not improve with the current treatment plan. - The patient was advised to follow up with her primary care provider or return to the clinic if her pain does not improve after a couple of weeks. Orders: Orders XR hip LT min 2V Today M25.552 - Pain in left hip Medications: New meloxicam 15 mg PO DAILY PRN 15 tabs 0RF pain, moderate cyclobenzaprine 5 mg PO Q8H PRN 20 tabs 0RF Muscle Spasm Coding Level of Care Code Est Pt Level 3 (23855) Diagnoses Trochanteric bursitis of left hip M70.62 Hip bursitis location: trochanteric bursitis
[2025-10-19 09:15] VITALS: BP 120/90; PULSE 78; O2SAT 98; BMI 35.7
== END 2025-10-19 09:42 | disposition home or self-care (01) ==
PROVIDERS: PCP Internal Medicine; Visit Provider Physician Assistant
DX: M70.62 Trochanteric bursitis, left hip (principal)

== ENCOUNTER → 2025-10-19 09:07 | Outpatient (BNVA) | payer OTHER, SELFPAY | PROVIDERS: PCP Internal Medicine; Visit Provider Physician Assistant | DX: M70.62 Trochanteric bursitis, left hip (principal); M25.552 Pain in left hip | CPT/HCPCS: 99212 ==